=== PATIENT | female | born 1985 | race Caucasian/White ===

== ENCOUNTER 2022-11-30 16:52 | Emergency (ER) | payer SELFPAY ==
[2022-11-30 16:55] VITALS: BP 141/110; PULSE 96; RESP 24; TEMP 36.4; O2SAT 98; BMI 24.7
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
[2022-11-30] MEDS: ACETAMINOPHEN 325 MG TABLET 650 MG PO (18:20)
[2022-11-30] MEDS: LORAZEPAM 1 MG TABLET PO (18:20)
[2022-11-30] MEDS: KETOROLAC TROMETHAMINE 30 MG/ML VIAL 15 MG IVP (18:35)
[2022-11-30] MEDS: 0.9 % SODIUM CHLORIDE 1,000 ML 999 ML IV (18:35)
[2022-11-30 20:02] LABS: Basophils Absolute Auto 0.1 10^3/uL (0.0-0.1); Basophils Percent Auto 1.6 % (0.2-2.0); Eosinophils Percent Auto 0.4 % (0.9-7.0); Hematocrit 40.6 % (36.0-48.0); Immature Granulocytes Abs Auto 0.01 10^3/uL (0.00-0.03); Immature Granulocytes Pct Auto 0.2 % (0.0-0.5); Lymphocytes Absolute Auto 1.9 10^3/uL (1.2-3.8); Lymphocytes Percent Auto 42.9 % (20.5-60.0); Mean Corpuscular HGB Conc 34.5 g/dL (29.9-35.2); Mean Corpuscular Hemoglobin 34.3 pg (26.7-34.0); Mean Corpuscular Volume 99.5 fL (81.0-99.0); Mean Platelet Volume 8.5 fL (9.5-13.5); Monocytes Absolute Auto 0.6 10^3/uL (0.3-0.8); Monocytes Percent Auto 13.5 % (1.7-12.0); Neutrophils Absolute Auto 1.8 10^3/uL (1.4-6.5); Neutrophils Percent Auto 41.4 % (43.0-75.0); Platelet Count 143 10^3/uL (150-450); Red Blood Count 4.08 10^6/uL (4.20-5.40); Red Cell Distribution Width 13.3 % (11.0-15.0); White Blood Count 4.5 10^3/uL (4.0-11.0)
[2022-11-30 20:20] LABS: Alanine Aminotransferase 28 U/L (14-59); Albumin Level 3.6 g/dL (3.4-5.0); Alkaline Phosphatase 113 U/L (46-116); Anion Gap 13.1; Aspartate Amino Transferase 51 U/L (15-37); BUN Creatinine Ratio 8.2; Bilirubin Total 0.3 mg/dL (0.2-1.0); Calcium 8.1 mg/dL (8.5-10.1); Carbon Dioxide 30.2 mmol/L (21.0-32.0); Chloride 103 mmol/L (98-107); Estimated GFR (African America >60 (>=60); Estimated GFR (Non-African Ame >60 (>=60); Globulin 3.7 g/dL; Glucose 155 mg/dL (74-106); Potassium 3.3 mmol/L (3.5-5.1); Sodium 143 mmol/L (136-145); Total Protein 7.3 g/dL (6.4-8.2)
[2022-11-30 20:21] LABS: Bilirubin Urine NEGATIVE (NEGATIVE); Blood Urine TRACE-I (NEGATIVE); Clarity Urine CLEAR (CLEAR); Color Urine LT. YELLOW (YELLOW); Glucose Urine UA NEGATIVE (NEGATIVE); Ketones Urine NEGATIVE (NEGATIVE); Leukocyte Esterase Urine MODERATE (NEGATIVE); Nitrite Urine NEGATIVE (NEGATIVE); Protein Urine 30 mg/dL (NEG/TRACE); Urobilinogen Urine 0.2 EU/dL (0.2-1.0)
[2022-11-30 20:22] LABS: Ethanol 434 mg/dL
[2022-11-30 20:27] LABS: Urine Microscopic Indicated YES
[2022-11-30 20:30] LABS: Bacteria Urine LARGE #/HPF (NONE SEEN); Cast Seen? NONE SEEN #/LPF (NONE SEEN); Crystals Seen? None Seen #/HPF (None Seen); Mucus Urine NONE SEEN (NONE SEEN); RBC Urine 0-2 #/HPF (0-2); Squamous Epithelial Cell Urine FEW #/LPF (NONE/RARE); Urine Culture Indicated YES
[2022-11-30 20:31] LABS: Amphetamine Screen Urine NEGATIVE (NEGATIVE); Barbiturates Screen Urine NEGATIVE (NEGATIVE); Benzodiazepines Screen Urine NEGATIVE (NEGATIVE); Buprenorphine Screen Urine NEGATIVE (NEGATIVE); Cannabinoid Screen Urine NEGATIVE (NEGATIVE); Cocaine Screen Urine NEGATIVE (NEGATIVE); Methadone Screen Urine NEGATIVE (NEGATIVE); Methamphetamines Screen Urine NEGATIVE (NEGATIVE); Opiate Screen Urine NEGATIVE (NEGATIVE); Oxycodone Screen Urine NEGATIVE (NEGATIVE); Phencyclidine Screen Urine NEGATIVE (NEGATIVE); Tricyclic Antidepressant Urine NEGATIVE (NEGATIVE)
[2022-11-30 23:46] VITALS: BP 126/87; PULSE 79; RESP 16; O2SAT 96
[2022-12-01 01:02] LABS: Ethanol 294 mg/dL
[2022-12-01 06:11] LABS: Ethanol 196 mg/dL
[2022-12-01 06:54] VITALS: BP 146/100; PULSE 105; RESP 16; O2SAT 96
[2022-12-01] MEDS: POTASSIUM CHLORIDE 10 MEQ ER TABLET 20 MEQ PO (07:15)
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
[2022-12-01 09:53] VITALS: BP 153/98; PULSE 108; RESP 14; TEMP 36.6; O2SAT 95
--- NOTE | 2022-12-01 10:14 | SWNOTE1 ---
JAYLENE called the senior care in [place] and they need patient to call. JAYLENE called Louann in ER to let her know.
[2022-12-01] MEDS: DIAZEPAM 5 MG/ML - 2 ML INJ SYRINGE 2 MG IV (10:38)
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
[2022-12-01 13:53] VITALS: BP 157/99; PULSE 98; RESP 15; TEMP 36.6; O2SAT 100
--- NOTE | 2022-12-05 10:51 | PC.NURSE ---
12/05/22 pt urine c+s reviewed by dr nash yesterday written for script called pt today pt is at [facility] in [place] needs script [facility] to [facility] in [place] this clinic will be open Wednesday morning and only has fax available, spoke with dr lawrence written script faxed to clinic as requested, and pt notified. pt denies any further questions needs or concerns at this time.
== END 2022-12-01 13:51 | disposition home or self-care (01) ==
PROVIDERS: Emergency Medicine; Emergency Provider Emergency Medicine
DX: F10.129 Alcohol abuse with intoxication, unspecified (principal); T74.11XA Adult physical abuse, confirmed, initial encounter; Z59.00 Homelessness unspecified; E87.6 Hypokalemia; R51.9 Headache, unspecified; F17.210 Nicotine dependence, cigarettes, uncomplicated; Y09 Assault by unspecified means; Y07.030 Male partner, current, perpetrator of maltreatment and neglect
CPT/HCPCS: 36415; 70450; 71250; 72125; 73630; 80053; 80307; 80320; 81001; 85025; 86850; 86900; 86901; 87086; 87150; 87186; 96374; 96375; 99285